=== PATIENT | female | born 1995 | race Caucasian/White ===

== ENCOUNTER 2021-05-18 04:23 | Day surgery (SDC) | payer OTHER ==
[2021-05-16 16:28] VITALS: BMI 45.3
[2021-05-18] MEDS ORDERED: PROPOFOL 20 ML ONE (11:50)
[2021-05-18] MEDS ORDERED: MIDAZOLAM HCL 2 MG/2 ML SINGLE DOSE VIAL ONE ×2 (11:50→12:25)
[2021-05-18] MEDS ORDERED: oxyCODONE HCL 5 MG TABLET PO PRN ×2 (12:09→13:00)
[2021-05-18] MEDS ORDERED: IBUPROFEN 400 MG TABLET (FP) PO PRN (12:09)
[2021-05-18] MEDS ORDERED: ACETAMINOPHEN 325 MG TABLET (FP) PO PRN (12:09)
[2021-05-18] MEDS ORDERED: ONDANSETRON 4 MG/2 ML VIAL IVPUSH PRN ×2 (12:09→13:00)
[2021-05-18] MEDS ORDERED: DOXYCYCLINE INJECTION 100 MG in DEXTROSE 5%-WATER 100 ML IVPB ONE (12:30)
[2021-05-18] MEDS ORDERED: DOXYCYCLINE HYCLATE 100 MG VIAL IVPB ONE (12:30)
[2021-05-18] MEDS ORDERED: KETOROLAC TROMETHAMINE 30 MG/1 ML VIAL ONE (12:49)
[2021-05-18] MEDS ORDERED: DEXAMETHASONE SOD PHOSPHATE 4 MG/1 ML VIAL ONE (12:49)
[2021-05-18] MEDS ORDERED: LACTATED RINGERS SOLUTION 1,000 ML IV SCH (13:00)
[2021-05-18 14:53] VITALS: BP 101/62; PULSE 87; TEMP 97.4
== END 2021-05-18 14:54 | disposition home or self-care (01) ==
LOC: JASU-SURG 04:23
PROVIDERS: ATTEND Obstetrics & Gynecology
PROC: 10D17ZZ Extraction of Products of Conception, Retained, Via Natural or Artificial Opening (ICD-10-PCS; principal; 2021-05-18 12:00)
DX: O02.1 Missed abortion (principal)
CPT/HCPCS: 94760

== ENCOUNTER 2022-03-17 13:00 | Inpatient (IN) | payer OTHER ==
[2022-03-17] MEDS ORDERED: ELECTROLYTE-148 SOLN 500 ML IV ONE (14:17)
[2022-03-17] MEDS ORDERED: CITRIC ACID/SODIUM CITRATE 30 ML UNIT-DOSE CUP PO ONE (14:17)
[2022-03-17] MEDS ORDERED: ELECTROLYTE-148 SOLN 1,000 ML IV SCH (14:30)
[2022-03-17 14:59] LABS: INR 1.28 (0.83-1.09); PROTHROMBIN TIME (PATIENT) 14.8 SEC (9.7-13.0)
[2022-03-17 15:01] LABS: ACTIVATED PTT 35.7 SECONDS (25.2-36.5)
[2022-03-17 15:12] LABS: BASO % 0.2 % (0-2.0); HEMATOCRIT 16.7 % (32.4-45.2); MEAN CELL VOLUME 91.3 fl (80-96); MEAN PLT VOLUME 9.2 fl (7.5-11.1); MONO % 4.8 % (3.8-10.2); PLATELET COUNT 107 10^3/uL (134-434); RBC 1.83 M/mm3 (3.60-5.2); RDW 12.5 % (11.6-15.6); WHITE BLOOD COUNT 4.5 K/mm3 (4.0-10.0)
[2022-03-17 15:21] LABS: HEMOGLOBIN 5.7 GM/dL (10.7-15.3)
[2022-03-17 15:36] VITALS: BMI 50.6
[2022-03-17 15:48] LABS: BASO % 0.3 % (0-2.0); EOS % 1.9 % (0-4.5); HEMATOCRIT 35.5 % (32.4-45.2); LYMPH % 15.9 % (8-40); MCH 30.5 pg (25.7-33.7); MCHC 33.9 g/dl (32.0-36.0); MEAN CELL VOLUME 90.1 fl (80-96); MEAN PLT VOLUME 9.2 fl (7.5-11.1); NEUT % 76.9 % (42.8-82.8); PLATELET COUNT 232 10^3/uL (134-434); RBC 3.94 M/mm3 (3.60-5.2); RDW 12.6 % (11.6-15.6); WHITE BLOOD COUNT 11.1 K/mm3 (4.0-10.0)
[2022-03-17 16:22] LABS: CALCIUM 8.4 mg/dL (8.5-10.1)
[2022-03-17 16:26] LABS: CREATININE 0.5 mg/dL (0.55-1.3)
[2022-03-17] MEDS ORDERED: morphine SULFATE/PF 1 MG/2 ML (2cc Syringe - QUVA) ONE (16:41)
[2022-03-17] MEDS ORDERED: ceFAZolin SODIUM 1 GM VIAL ONE (16:41)
[2022-03-17] MEDS ORDERED: ACETAMINOPHEN INJECTION 100 ML IVPB ONE (18:06)
[2022-03-17 18:07] LABS: CORD HCO3 24.6 mmHg (20-29); CORD HCO3 25.1 mmHg (20-29); CORD PCO2 54.3 mmHg (30-78); CORD PCO2 64.1 mmHg (30-78); CORD pH 7.202 (7.14-7.44); CORD pH 7.283 (7.14-7.44)
[2022-03-17] MEDS ORDERED: METHYLERGONOVINE MALEATE 0.2 MG/1 ML AMP IM PRN (18:55)
[2022-03-17] MEDS ORDERED: ACETAMINOPHEN 325 MG TABLET (FP) PO PRN (18:55)
[2022-03-17] MEDS ORDERED: IBUPROFEN 800 MG/8 ML IJ IVPB PRN (18:55)
[2022-03-17] MEDS ORDERED: OXYTOCIN 20 UNITS in 0.9% NS 20 UNIT/1,000 ML INFUS.BAG IV SCH (19:00)
[2022-03-18] MEDS: CEFAZOLIN SODIUM 2 GM in DEXTROSE 5%-WATER 100 ML IVPB SCH ×3 (01:30→17:48)
[2022-03-18] MEDS ORDERED: ceFAZolin 2 GRAM PREMIX BAG IVPB SCH (02:00)
[2022-03-18] MEDS ORDERED: oxyCODONE HCL 5 MG TABLET PO PRN (06:55)
[2022-03-18 07:25] LABS: BASO % 0.1 % (0-2.0); EOS % 1.3 % (0-4.5); HEMATOCRIT 33.1 % (32.4-45.2); HEMOGLOBIN 11.4 GM/dL (10.7-15.3); LYMPH % 13.3 % (8-40); MCH 30.9 pg (25.7-33.7); MCHC 34.3 g/dl (32.0-36.0); MEAN CELL VOLUME 89.9 fl (80-96); MEAN PLT VOLUME 9.4 fl (7.5-11.1); MONO % 6.2 % (3.8-10.2); NEUT % 79.1 % (42.8-82.8); PLATELET COUNT 197 10^3/uL (134-434); RBC 3.69 M/mm3 (3.60-5.2); RDW 12.5 % (11.6-15.6); WHITE BLOOD COUNT 9.6 K/mm3 (4.0-10.0)
[2022-03-18] MEDS: ENOXAPARIN NA (PORCINE) 40 MG/0.4 ML DISP.SYRIN SQ SCH (10:05)
[2022-03-18] MEDS: SIMETHICONE 80 MG TAB.CHEW (FP) PO PRN ×2 (14:36→21:23)
[2022-03-18] MEDS: IBUPROFEN 600 MG TABLET (FP) PO PRN ×2 (14:36→21:23)
[2022-03-18] MEDS ORDERED: BISACODYL 10 MG SUPP.RECT RC PRN (18:55)
[2022-03-18] MEDS: oxyCODONE HCL 5 MG TABLET PO PRN (23:20)
[2022-03-19] MEDS: oxyCODONE HCL 5 MG TABLET PO PRN ×3 (07:51→20:47)
[2022-03-19] MEDS: SIMETHICONE 80 MG TAB.CHEW (FP) PO PRN ×3 (07:52→20:48)
[2022-03-19] MEDS: ENOXAPARIN NA (PORCINE) 40 MG/0.4 ML DISP.SYRIN SQ SCH (10:15)
[2022-03-19] MEDS ORDERED: DOCUSATE SODIUM 100 MG CAPSULE (FP) PO PRN (15:38)
[2022-03-19] MEDS: IBUPROFEN 600 MG TABLET (FP) PO PRN (18:24)
[2022-03-20 08:19] LABS: BASO % 0.5 % (0-2.0); EOS % 4.4 % (0-4.5); HEMATOCRIT 32.7 % (32.4-45.2); HEMOGLOBIN 11.3 GM/dL (10.7-15.3); LYMPH % 22.3 % (8-40); MCH 31.1 pg (25.7-33.7); MCHC 34.4 g/dl (32.0-36.0); MEAN CELL VOLUME 90.5 fl (80-96); MEAN PLT VOLUME 9.2 fl (7.5-11.1); MONO % 6.2 % (3.8-10.2); NEUT % 66.6 % (42.8-82.8); PLATELET COUNT 233 10^3/uL (134-434); RBC 3.62 M/mm3 (3.60-5.2); RDW 12.9 % (11.6-15.6); WHITE BLOOD COUNT 7.3 K/mm3 (4.0-10.0)
[2022-03-20] MEDS: ENOXAPARIN NA (PORCINE) 40 MG/0.4 ML DISP.SYRIN SQ SCH (10:16)
[2022-03-20] MEDS: IBUPROFEN 600 MG TABLET (FP) PO PRN (10:28)
[2022-03-20] MEDS: SIMETHICONE 80 MG TAB.CHEW (FP) PO PRN (10:28)
[2022-03-20 12:22] VITALS: BP 129/72; PULSE 94; TEMP 97.4
== END 2022-03-20 13:07 | disposition home or self-care (01) | DRG 540 ==
LOC: JLDR 13:00 → J3W 20:05
PROVIDERS: ADMIT Obstetrics & Gynecology; ATTEND Obstetrics & Gynecology
PROC: 10D00Z1 Extraction of Products of Conception, Low, Open Approach (ICD-10-PCS; principal; 2022-03-17)
PROC: 0UN90ZZ Release Uterus, Open Approach (ICD-10-PCS; 2022-03-17)
DX: O34.219 Maternal care for unspecified type scar from previous cesarean delivery (principal); O99.214 Obesity complicating childbirth; E66.01 Morbid (severe) obesity due to excess calories; O99.824 Streptococcus B carrier state complicating childbirth; O99.892 Other specified diseases and conditions complicating childbirth; N73.6 Female pelvic peritoneal adhesions (postinfective); Z3A.39 39 weeks gestation of pregnancy; Z37.0 Single live birth
CPT/HCPCS: 36415; 36600; 80048; 82803; 85025; 85610; 85730; 86780; 86850; 86900; 86901; 88307-TC